=== PATIENT | female | born 1960 | race Asian ===

== ENCOUNTER 2016-03-07 05:53 | Day surgery (SDC) | payer OTHER ==
--- NOTE | 2016-03-06 15:42 | HISTORY AND PHYSICAL ---
ADMITTED: 03/07/2016 HISTORY OF PRESENT ILLNESS: The patient is a 55-year-old female who presents with a chief complaint of a painful enlarged mass on the dorsum of her right foot. States the mass has increased in size and now has become painful with shoe gear. MEDICAL/SURGICAL HISTORY: Her past medical history includes a history of elevated cholesterol, diabetes, thyroid problems. Surgical history: Noncontributory. PRIMARY CARE PROVIDER: Dr. Kelly. MEDICATIONS: 1. Lisinopril 50 mg 1 by mouth daily. 2. Levothyroxine 25 mg 1 by mouth daily. 3. Aspirin 81 mg tablet 1 by mouth daily. 4. Vitamin D3 2000 international units p.o. daily. 5. Metformin 500 mg 1 by mouth b.i.d. 6. Atorvastatin 25 mg tablet 1 by mouth daily. 7. Xyzal 5 mg tablet 1 by mouth daily. 8. Fish oil 1 by mouth daily. ALLERGIES: 1. REPORTS AN ALLERGY TO ENVIRONMENTAL. NO KNOWN DRUG ALLERGY. SOCIAL HISTORY: She is , works at [employer], does not smoke, does not drink. FAMILY HISTORY: Positive for diabetes. REVIEW OF SYSTEMS: Ten point review of systems positive for diabetes. PHYSICAL EXAMINATION: GENERAL: The patient is alert and oriented x3. HEAD AND NECK: PERRLA. Normocephalic. HEART: Regular rate and rhythm. Regular S1 and S2. No murmurs or gallops. RESPIRATIONS: Clear to auscultation. No wheezing, rhonchi, or rales. ABDOMEN: Soft, tender, nondistended. No palpable masses. LOWER EXTREMITY: Dorsalis pedis and posterior tibial pulses are palpable at +2/ 4. Skin texture and turgor within normal limits. Venous plexus within normal limits. There are no open lesions or fissures. She has got a normal epicritic sensations in dermatomes L4, L5 and S1. Area in question is a mass that is positive transluminal and measures 1.0 x 1.0. Seems to be just lateral to the extensor hallucis longus tendon and exiting from the PIP joint of the right great toe. LAB/IMAGING: Imaging presents a multilobulated soft tissue mass seen on ultrasound. IMPRESSION: 1. A soft tissue mass, unknown etiology. 2. Smi-[id number] diabetic without complications. PLAN: The patient is scheduled for an outpatient procedure consisting of removal of the soft tissue mass at [place] on 03/07/2016. There are no contraindications to surgery at this time.
[~2016-03-07 05:53] MED LIST: ASPIRIN 81 LOW81 MG PO; ATORVASTATIN CA40 MG PO; LEVOTHYROXINE100 MCG PO; LEVOTHYROXINE112 MCG PO; LISINOPRIL10 MG PO; METFORMIN HCL500 MG PO; MULTIVITAMIN1 TAB PO; VITAMIN D-31000 UNIT PO; XYZAL5 MG PO
[2016-03-07] MEDS ORDERED: DILAUDID2 MG PO (08:24)
[2016-03-07] MEDS ORDERED: ZOFRAN4 MG PO (08:25)
--- NOTE | 2016-03-07 08:26 | Provider's Discharge Care Plan ---
Problem, Goal, Plan Problem List 1. Ganglion, right ankle and foot Goals: Improve function Instructions: Follow up as directed
--- NOTE | 2016-03-07 08:26 | Provider's Discharge Care Plan ---
Problem, Goal, Plan Problem List 1. Ganglion, right ankle and foot Goals: Improve function Instructions: Follow up as directed
--- NOTE | 2016-03-07 10:39 | OPERATIVE REPORT ---
DATE OF SURGERY: 03/07/2016 SURGEON: Quinton Chandler DPM PREOPERATIVE DIAGNOSES: 1. Soft tissue mass, dorsum of the right great toe POSTOPERATIVE DIAGNOSES: 1. Soft tissue mass, dorsum of the right great toe PROCEDURE PERFORMED: 1. Removal of soft tissue mass, right great toe ANESTHESIA: LMA. HEMOSTASIS: Achieved by pneumatic ankle tourniquet inflated to 250 mmHg pressure. Total tourniquet time 25 minutes. MATERIALS: 4-0 Polysorb and 4-0 Surgipro. INJECTABLES: Injected 10 mL of 0.5% bupivacaine plain. COMPLICATIONS: None. CONDITION: The patient tolerated the anesthesia and procedure well. INDICATIONS: The patient is a 55-year-old female who presents with a mass on the dorsum of the right great toe at the IP joint. The mass is growing and has become more painful. She would like to have it surgically removed. There are no contraindications to surgery at this time. SURGICAL TECHNIQUE: The patient was brought to the operating room and placed on the table in the supine position. At this time, an LMA anesthetic was administered, pneumatic tourniquet was then placed above the right ankle. The right lower extremity was prepped and draped in normal sterile fashion. Surgical time-out was carried out with verification of proper limb, consent form verified and confirmed. Esmarch bandage was then utilized to exsanguinate the limb, the tourniquet was then inflated. Attention was then directed to procedure #1. Removal of soft tissue mass, right great toe. At this time, a linear incision was made extending from the distal aspect of the right great toe just proximal to the proximal nail fold extending across the IP joint. Meticulous dissection was carried out and the mass was removed. It seemed to be exiting and coming from the interphalangeal joint. It did communicate directly with the extensor hallucis longus tendon. The mass was then passed off with forceps to formalin. The area was flushed for any remaining questionable tissue was removed in toto. The subcutaneous tissue was reapproximated with 4-0 Polysorb, and the skin edges reapproximated in running fashion with 4-0 Surgipro. The area was locally anesthetized with the aforementioned local anesthetic. A light compressive dressing was applied. The tourniquet was released with reactive hyperemia and good digital perfusion. The patient tolerated anesthesia and procedure well with her vital signs stable. While in recovery, written instructions of weightbearing to tolerance with the aid of a postoperative shoe. Prognosis is guarded. She will be discharged home in stable condition. We will await pathology analysis of the soft tissue mass.
== END 2016-03-07 10:30 | disposition home or self-care (01) ==
LOC: OR SRH 05:53 → SCU SRH 05:56
PROVIDERS: Podiatrist
PROC: 0LBV0ZZ Excision of Right Foot Tendon, Open Approach (ICD-10-PCS; principal; 2016-03-07 07:30)
DX: M67.471 Ganglion, right ankle and foot (principal); E11.9 Type 2 diabetes mellitus without complications; Z79.84 Long term (current) use of oral hypoglycemic drugs
CPT/HCPCS: 29229; 29240; 50004; 60001; 70002; 80575; 83414; 84038; 84522; 84551; 90074; 90100; 95059

== ENCOUNTER 2016-06-17 08:33 | Outpatient (CLI) | payer OTHER ==
[~2016-06-17 08:33] MED LIST changes: +DILAUDID2 MG PO; +ZOFRAN4 MG PO
--- NOTE | 2016-06-17 09:29 | DIAGNOSTIC IMAGING REPORT ---
PROCEDURE: XR CHEST 2 VIEW INDICATION: ACUTE BRONCHITIS TECHNIQUE: PA and lateral view. COMPARISON: None. FINDINGS: Lungs are clear. Cardiovascular structures are normal. Bony thorax is unremarkable. IMPRESSION: 1. Negative chest.
== END 2016-06-17 23:00 ==
LOC: XR SRH 08:33
DX: J20.9 Acute bronchitis, unspecified (principal)